=== PATIENT | male | born 1975 | race Caucasian/White ===

== ENCOUNTER 2017-01-22 19:25 | Inpatient (IN) | payer SELFPAY ==
[~2017-01-22] VITALS: Ht 182.9 cm; Wt 118.2 kg
[~2017-01-22 19:25] MED LIST: CYCL-36 PO; IBUP800 PO
[2017-01-22 19:27] VITALS: BP 137/91; PULSE 113; RESP 18; TEMP 98.7; O2SAT 95
[2017-01-22] MEDS ORDERED: ONDANSETRON HCL 4 MG/2 ML VIAL IVP ONE (20:30)
[2017-01-22] MEDS ORDERED: SODIUM CHLOR 0.9% 1000 ML INJ 1,000 ML IV SCH (20:30)
[2017-01-22] MEDS ORDERED: SODIUM CHLORIDE 0.9% FLUSH 10 ML FLUSH IV FLUSH PRN ×3 (20:30→23:15)
[2017-01-22] MEDS ORDERED: MORPHINE SULFATE 4 MG/ML INJ IV PUSH ONE ×2 (20:30→22:15)
--- NOTE | 2017-01-22 20:37 | PD ---
HPI Chief Complaint: Abdominal Pain Time Seen by Provider: 20:31 Travel History International Travel<30 days: No Contact w/Intl Traveler<30days: No Traveled to known affect area: No History of Present Illness HPI 41-year-old male presents to the emergency department for evaluation of left lower quadrant abdominal pain, nausea, vomiting and constipation for 2 days. The patient states that he has had diverticulitis in the past and this feels the same. States that he has intermittent sharp pain in the left lower quadrant. Denies any aggravating or alleviating factors. States that he has not had a bowel movement in 2 days. States that he has nausea and has had 2 episodes of nonbloody nonbilious emesis today. He denies any fever, chills, dysuria, hematuria, chest pain, shortness of breath, diarrhea, bloody stool. Denies any prior abdominal surgeries. Denies alcohol use. No other complaints. PFSH Past Medical History Asthma: No Anxiety: Yes Depression: No Cancer: No Cardiovascular Problems: No COPD: No Cerebrovascular Accident: No Diabetes: No Endocrine: No Gastrointestinal Disorders: No GERD: No Genitourinary: No Headaches: No Immune Disorder: No Implanted Vascular Access Dvce: No Kidney Stones: No Musculoskeletal: No Neurologic: No Reproductive: No Respiratory: Yes Migraines: Yes (every once and a while) Renal Failure: No Seizures: No Sickle Cell Disease: No Sleep Apnea: Yes Thyroid Disease: No Ulcer: No Past Surgical History Abdominal Surgery: No AICD: No Arteriovenous Shunt: No Cardiac Surgery: No Ear Surgery: No Endocrine Surgery: No Eye Surgery: No Genitourinary Surgery: No Gynecologic Surgery: No Insulin Pump: No Joint Replacement: No Neurologic Surgery: No Oral Surgery: No Pacemaker: No Thoracic Surgery: No Other Surgery: Yes Social History Alcohol Use: No Tobacco Use: Yes (1 PACK PER DAY) Substance Use: Yes (marijuana) Allergies-Medications (Allergen,Severity, Reaction): Coded Allergies: Penicillin (Verified Allergy, Severe, HIVES, 06/08/16) Reported Meds & Prescriptions Reported Meds & Active Scripts Active Flexeril (Cyclobenzaprine HCl) 10 Mg Tab 10 Mg PO TID PRN Motrin 800 Mg Tab (Ibuprofen) 800 Mg Tab 800 Mg PO Q8H PRN 10 Days Review of Systems Except as stated in HPI: all other systems reviewed are Neg Physical Exam Narrative GENERAL: Well-nourished and well-developed pleasant patient in no acute distress who is nontoxic appearing. SKIN: Warm and dry. HEAD: Normocephalic and atraumatic. EYES: No injection, drainage, or hyphema noted. PERRLA. EOMI. ENT: No nasal drainage noted. Oropharynx is clear. NECK: Supple and the trachea is midline. CARDIOVASCULAR: Regular rate and rhythm. RESPIRATORY: Breath sounds are equal bilaterally with no accessory muscle use, wheezing, rhonchi, or crackles. GASTROINTESTINAL: Left lower quadrant tenderness to palpation. Negative McBurney's point. Negative Garnica's sign. Abdomen is soft and nondistended. MUSCULOSKELETAL: No obvious deformities, swelling, cyanosis, or ecchymosis is present throughout the upper and lower extremities. Patient has full range of motion without any signs of neurovascular compromise. NEUROLOGICAL: Awake, alert, and oriented. Normal speech and gait. Cranial nerves are grossly intact. Data Data Last Documented VS Vital Signs Date Time Temp Pulse Resp B/P Pulse Ox O2 Delivery O2 Flow Rate FiO2 01/22/17 20:57 99 Room Air 01/22/17 19:27 98.7 113 18 137/91 Orders Complete Blood Count With Diff (01/22/17 20:30) Comprehensive Metabolic Panel (01/22/17 20:30) Lipase (01/22/17 20:30) Urinalysis - C+S If Indicated (01/22/17 20:30) Ct Abd/Pel W Iv Contrast(Rout) (01/22/17 20:30) Iv Access Insert/Monitor (01/22/17 20:30) Ecg Monitoring (01/22/17 20:30) Oximetry (01/22/17 20:30) Morphine Inj (Morphine Inj) (01/22/17 20:30) Ondansetron Inj (Zofran Inj) (01/22/17 20:30) Sodium Chlor 0.9% 1000 Ml Inj (Ns 1000 M (01/22/17 20:30) Sodium Chloride 0.9% Flush (Ns Flush) (01/22/17 20:30) Iohexol 350 Inj (Omnipaque 350 Inj) (01/22/17 21:00) Morphine Inj (Morphine Inj) (01/22/17 22:15) Ciprofloxacin 400 Mg Premix (Cipro 400 M (01/22/17 22:15) Metronidazole 500 Mg Inj (Flagyl 500 Mg (01/22/17 22:15) Admit Order (Ed Use Only) (01/22/17 22:36) Labs Laboratory Tests Test 01/22/17 01/22/17 20:50 21:20 Sodium Level 136 MEQ/L Potassium Level 4.5 MEQ/L Chloride Level 103 MEQ/L Carbon Dioxide Level 22.2 MEQ/L Anion Gap 11 MEQ/L Blood Urea Nitrogen 23 MG/DL Creatinine 1.18 MG/DL Estimat Glomerular Filtration 67 ML/MIN Rate Random Glucose 122 MG/DL Calcium Level 9.4 MG/DL Total Bilirubin 0.5 MG/DL Aspartate Amino Transf 33 U/L (AST/SGOT) Alanine Aminotransferase 49 U/L (ALT/SGPT) Alkaline Phosphatase 99 U/L Total Protein 7.9 GM/DL Albumin 3.9 GM/DL Lipase 1005 U/L White Blood Count 18.1 TH/MM3 Red Blood Count 4.96 MIL/MM3 Hemoglobin 14.3 GM/DL Hematocrit 42.6 % Mean Corpuscular Volume 85.9 FL Mean Corpuscular Hemoglobin 28.8 PG Mean Corpuscular Hemoglobin 33.6 % Concent Red Cell Distribution Width 13.7 % Platelet Count 268 TH/MM3 Mean Platelet Volume 8.5 FL Neutrophils (%) (Auto) 59.9 % Lymphocytes (%) (Auto) 28.3 % Monocytes (%) (Auto) 11.0 % Eosinophils (%) (Auto) 0.4 % Basophils (%) (Auto) 0.4 % Neutrophils # (Auto) 10.8 TH/MM3 Lymphocytes # (Auto) 5.1 TH/MM3 Monocytes # (Auto) 2.0 TH/MM3 Eosinophils # (Auto) 0.1 TH/MM3 Basophils # (Auto) 0.1 TH/MM3 CBC Comment DIFF FINAL Differential Comment MDM Medical Decision Making Medical Screen Exam Complete: Yes Emergency Medical Condition: Yes Differential Diagnosis Diverticulitis versus colitis versus abscess versus kidney stones versus gastroenteritis Narrative Course 41-year-old male presents to the emergency department for evaluation of left lower quadrant abdominal pain with nausea, vomiting and constipation. Patient is afebrile. He slightly tachycardic, otherwise vital signs within normal limits. Patient has left lower quadrant tenderness to palpation. He has a history of diverticulitis and states this feels the same. IV access is obtained , was been drawn and sent. Patient is administered IV fluids, morphine and Zofran. CT abdomen and pelvis with IV contrast has been ordered and is pending. CBC shows elevated white blood cell count of 18.1. CMP shows mild dehydration with a BUN of 23, otherwise unremarkable. Lipase is slightly elevated at 1005. CT of the abdomen and pelvis with IV contrast shows diverticulitis involving the junction of the descending colon and sigmoid colon, and a segment slightly more proximal than the prior abnormal scan in December 2015. No drainable fluid collections seen, but there is a minimal amount of fluid tracking along the adjacent lateral conal fascia. My attending physician Dr. Duran also evaluated the patient and recommends admission for IV antibiotics and pain control. Patient is administered Cipro and Flagyl IV and is admitted to the residents service. Physician Communication Physician Communication I spoke with Dr. Richards medical staff manager who agrees to admit the patient to their service. Diagnosis Primary Impression: Acute diverticulitis Admitting Information Admitting Physician Requests: Admit Mery Mccoy Jan 22, 2017 20:37
[2017-01-22 20:57] VITALS: O2SAT 99
[2017-01-22] MEDS ORDERED: IOHEXOL 350 MG/ML 10 ML VIAL (for RAD DIAG) IV ONE (21:00)
[2017-01-22 21:36] LABS: ALT (GPT) 49 U/L (12-78)
[2017-01-22 21:38] LABS: ANION GAP 11 MEQ/L (5-15); AST (GOT) 33 U/L (15-37); BICARBONATE 22.2 MEQ/L (21.0-32.0); BLOOD UREA NITROGEN 23 MG/DL (7-18); CHLORIDE 103 MEQ/L (98-107); GLOMERULAR FILTRATION RATE 67 ML/MIN (>89); POTASSIUM 4.5 MEQ/L (3.5-5.1); SODIUM (NA) 136 MEQ/L (136-145)
[2017-01-22 21:39] LABS: ALKALINE PHOSPHATASE 99 U/L (45-117); TOTAL BILIRUBIN ADULT 0.5 MG/DL (0.2-1.0)
--- NOTE | 2017-01-22 22:08 | RADRPT ---
EXAM DATE/TIME: 01/22/2017 20:57 [facility] COMPARISON: CT ABDOMEN & PELVIS W CONTRAST, December 25, 2015, 15:37. INDICATIONS : Left lower quadrant pain with nausea and vomiting. IV CONTRAST: 95 cc Omnipaque 350 (iohexol) IV ORAL CONTRAST: No oral contrast ingested. RADIATION DOSE: 20.64 CTDIvol (mGy) MEDICAL HISTORY : Diverticulitis. SURGICAL HISTORY : None. ENCOUNTER: Initial ACUITY: 2 days PAIN SCALE: 10/10 LOCATION: Left lower quadrant TECHNIQUE: Volumetric scanning of the abdomen and pelvis was performed. Using automated exposure control and ad justment of the mA and/or kV according to patient size, radiation dose was kept as low as reasonably achievable to obtain optimal diagnostic quality images. FINDINGS: LOWER LUNGS: The visualized lower lungs are clear. Multiple tiny subpleural cysts in both lower lungs stable in a ppearance. LIVER: Homogeneous density without lesion. There is no dilation of the biliary tree. No calcified gallston es. SPLEEN: Normal size without lesion. PANCREAS: Within normal limits. KIDNEYS: Normal in size and shape. There is no mass, stone or hydronephrosis. ADRENAL GLANDS: Within normal limits. VASCULAR: There is no aortic aneurysm. BOWEL/MESENTERY: Comparison to prior CT 12/25/15 which demonstrated wall thickening and induration of the fat about the proximal sigmoid colon. On today's examination, there is induration about the proximal sigmoid colon near the junction with the descending colon, a segment slightly more proximal than on the prior exam ination. There is thickening of the lateral conal fashion and possible minimal free fluid in this ar ea. The area of pericolonic stranding in the proximal sigmoid colon seen on the prior examination garnett s resolved. There are a few scattered diverticula in the proximal sigmoid colon. No evidence of warren e fluid in the pelvis. No evidence of free intraperitoneal gas. No dilated loops of small or large bowel. The appendix is identified in the right lower quadrant has a normal appearance. ABDOMINAL WALL: Within normal limits. RETROPERITONEUM: There is no lymphadenopathy. BLADDER: No wall thickening or mass. REPRODUCTIVE: Within normal limits. INGUINAL: There is no lymphadenopathy or hernia. MUSCULOSKELETAL: Within normal limits for patient age. CONCLUSION: There is evidence of diverticulitis involving the junction of the descending colon and sigmoid colon, in a segment slightly more proximal than the prior abnormal scan on 12/25/15. No drainable fluid nori ections seen, but there is a minimal amount of fluid tracking along the adjacent lateral conal fascia . Aldo Quezada MD on January 22, 2017 at 22:00 Board Certified Radiologist. This report was verified electronically.
[2017-01-22 22:11] LABS: AUTOMATED NEUTROPHIL # 10.8 TH/MM3 (1.8-7.7); BASOPHIL # 0.1 TH/MM3 (0-0.2); BASOPHIL % 0.4 % (0.0-2.0); EOSINOPHIL # 0.1 TH/MM3 (0-0.4); EOSINOPHIL % 0.4 % (0.0-4.0); HEMATOCRIT 42.6 % (39.0-51.0); HEMO FLAGS DIFF FINAL; LYMPH % 28.3 % (9.0-44.0); LYMPHOCYTE # 5.1 TH/MM3 (1.0-4.8); MEAN CELL VOLUME 85.9 FL (80.0-100.0); MEAN CORPUSCULAR HEMOGLOBIN 28.8 PG (27.0-34.0); MEAN CORPUSCULAR HGB CONC 33.6 % (32.0-36.0); NEUT % 59.9 % (16.0-70.0); PLATELET COUNT 268 TH/MM3 (150-450); RED BLOOD COUNT 4.96 MIL/MM3 (4.50-5.90); RED CELL DISTRIBUTION WIDTH 13.7 % (11.6-17.2); WHITE BLOOD COUNT 18.1 TH/MM3 (4.0-11.0)
[2017-01-22] MEDS ORDERED: CIPROFLOXACIN 400 MG PREMIX 200 ML IV ONE (22:15)
[2017-01-22] MEDS ORDERED: metroNIDAZOLE 500 MG INJ 100 ML IV ONE (22:15)
--- NOTE | 2017-01-22 22:55 | HHI.HP ---
HPI Service Family Medicine Primary Care Physician No Primary Care Physician Admission Diagnosis Acute Diverticulitis Diagnoses: International Travel<30 Days: No Contact w/Intl Traveler<30days: No Known Affected Area: No History of Present Illness This is a 41 year old male with a past medical history significant for Diverticulitis. He is presenting to the [facility] ED due to abdominal pain. He has had the abdominal pain for the last 2 days and it has been progressively worsening. At first the pain was tolerable and felt like a bad cramp, as it worsening he switched himself to a clear liquid diet. He started to throw up a day into the pain and said that the emisis was food or bile but did not notice any blood. The pain is in the left side of his abdomen from the bottom of the last rib to the top of his hip. He has the constant cramping pain then occasionally he gets these very unbearable pain, which convinced him to come to the hospital. He say that the sever pain "feels like a midget kicking him in the stomach with a steel toe boot" and that it comes in waves. He says that this pain is more severe then his previous bout of diverticulitis. His last bowel movement was 2 days prior, he denies it being bloody or black. He is unaware of any fevers, though he occasionally feels hot and cold. Review of Systems Constitutional: COMPLAINS OF: Weight loss, Change in appetite (decreased), DENIES: Fever, Weight gain Endocrine: DENIES: Polydipsia Eyes: DENIES: Double Vision Ears, nose, mouth, throat: COMPLAINS OF: Running Nose, DENIES: Nasal discharge , Throat pain, Hoarseness, Toothache Respiratory: COMPLAINS OF: Cough, DENIES: Sputum production, Shortness of breath Cardiovascular: DENIES: Chest pain, Lower Extremity Edema, Claudication Gastrointestinal: COMPLAINS OF: Abdominal pain, Nausea, Vomiting, DENIES: Black stools, Bloody stools, Constipation Genitourinary: DENIES: Hematuria, Dysuria Musculoskeletal: DENIES: Joint pain, Back pain Hematologic/lymphatic: DENIES: Bruising Neurologic: DENIES: Abnormal gait, Headache, Poor Balance Psychiatric: DENIES: Anxiety, Confusion, Depression Past Family Social History Past Medical History Diverticulitis Past Surgical History none Reported Medications Reported Meds & Active Scripts Active Flexeril (Cyclobenzaprine HCl) 10 Mg Tab 10 Mg PO TID PRN Motrin 800 Mg Tab (Ibuprofen) 800 Mg Tab 800 Mg PO Q8H PRN 10 Days Allergies: Coded Allergies: Penicillin (Verified Allergy, Severe, HIVES, 06/08/16) Family History Diabetes HTN Social History Live in [place] in an apartment 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 SKIN: No rashes, ecchymoses or lesions. Cool and dry. HEAD: Atraumatic. Normocephalic. No temporal or scalp tenderness. EYES: Pupils equal round and reactive. Extraocular motions intact. No scleral icterus. No injection or drainage. ENT: Nose without bleeding, purulent drainage or septal hematoma. Throat without erythema, tonsillar hypertrophy or exudate. Uvula midline. Airway patent. NECK: Trachea midline. No JVD or lymphadenopathy. Supple, nontender, no meningeal signs. CARDIOVASCULAR: Regular rate and rhythm without murmurs, gallops, or rubs. RESPIRATORY: Clear to auscultation. Breath sounds equal bilaterally. No wheezes , rales, or rhonchi. GASTROINTESTINAL: Abdomen soft, nondistended. No hepato-splenomegaly, or palpable masses. No guarding. Palpation of the abdomen causes pain in both the LUQ and LLQ. Negative McBurney's point. Negative Garnica's sign. MUSCULOSKELETAL: Extremities without clubbing, cyanosis, or edema. No joint tenderness, effusion, or edema noted. No calf tenderness. Negative Homans sign bilaterally. NEUROLOGICAL: Awake and alert. Cranial nerves II through XII grossly intact. Motor and sensory grossly within normal limits. Normal speech. Laboratory Laboratory Tests Test 01/22/17 01/22/17 20:50 21:20 Sodium Level 136 Potassium Level 4.5 Chloride Level 103 Carbon Dioxide Level 22.2 Anion Gap 11 Blood Urea Nitrogen 23 Creatinine 1.18 Estimat Glomerular Filtration 67 Rate Random Glucose 122 Calcium Level 9.4 Total Bilirubin 0.5 Aspartate Amino Transf 33 (AST/SGOT) Alanine Aminotransferase 49 (ALT/SGPT) Alkaline Phosphatase 99 Total Protein 7.9 Albumin 3.9 Lipase 1005 White Blood Count 18.1 Red Blood Count 4.96 Hemoglobin 14.3 Hematocrit 42.6 Mean Corpuscular Volume 85.9 Mean Corpuscular Hemoglobin 28.8 Mean Corpuscular Hemoglobin 33.6 Concent Red Cell Distribution Width 13.7 Platelet Count 268 Mean Platelet Volume 8.5 Neutrophils (%) (Auto) 59.9 Lymphocytes (%) (Auto) 28.3 Monocytes (%) (Auto) 11.0 Eosinophils (%) (Auto) 0.4 Basophils (%) (Auto) 0.4 Neutrophils # (Auto) 10.8 Lymphocytes # (Auto) 5.1 Monocytes # (Auto) 2.0 Eosinophils # (Auto) 0.1 Basophils # (Auto) 0.1 CBC Comment DIFF FINAL Differential Comment Result Diagram: 01/22/17211901/22/172049 Imaging Last Impressions Abdomen/Pelvis CT 01/22/172029 Signed Impressions: Service Date/Time: Sunday, January 22, 2017 20:57 - CONCLUSION: There is evidence of diverticulitis involving the junction of the descending colon and sigmoid colon, in a segment slightly more proximal than the prior abnormal scan on 12/25/15. No drainable fluid collections seen, but there is a minimal amount of fluid tracking along the adjacent lateral conal fascia. Aldo Quezada MD Assessment and Plan Assessment and Plan This is a 41 year old male with a past medical history significant for Diverticulitis. Being admitted for diverticulitis Code Status Full Code Discussed Condition With wdw: Dr. Felix Problem List: (1) Acute diverticulitis Status: Acute Plan: Patient is having a bout of acute diverticulitis per history, physical exam, and CT. WBC is elevated at 18.1. Vital are with in normal limits * Admit to inpatient * Consult Gastroenterology, recommendations appreciated * Ciprofloxacin 40 mg IV every 12 hours * Metronidazole 500 mg IV every 8 hours * Morphine 2 mg IV every 4 hours we'll transition to by mouth as patient progresses * Zofran 4 mg IV every 6 hours when necessary nausea/vomiting * Protonix 40 mg IV every 24 hours * IV fluids NS at 100 MLS per hour * Blood cultures pending * CBC, BMP ordered for the a.m. (2) Nutrition, metabolism, and development symptoms Status: Acute Plan: Diet: NPO at this time will progress diet as patient improved Fluid: NS at 100 MLS per hour Out of Bed ad xiang vitals q4 monitor electrolytes replace accordingly DVT prophylaxis with Heparin and SCDs Code Status: Full Code Disposition: improvement of clinic condition and GI recs Juan Carlos Richards MD R2 Jan 22, 2017 22:55
[2017-01-22] MEDS ORDERED: SENNOSIDES 8.6 MG TAB PO PRN (23:15)
[2017-01-22] MEDS ORDERED: NALOXONE HCL 0.4 MG/ML AMP IV PRN (23:15)
[2017-01-22] MEDS ORDERED: TEMAZEPAM 15 MG CAP PO PRN (23:15)
[2017-01-22] MEDS ORDERED: MAGNESIUM HYDROXIDE SUSP 30 ML CUP PO PRN (23:15)
[2017-01-22] MEDS ORDERED: ONDANSETRON HCL 4 MG/2 ML VIAL IV PRN (23:15)
[2017-01-22] MEDS ORDERED: BISACODYL 10 MG SUPP RECTAL PRN (23:15)
[2017-01-22] MEDS ORDERED: LACTULOSE SYRUP 20 GM/30 ML CUP PO PRN (23:15)
[2017-01-22] MEDS: SODIUM CHLOR 0.9% 1000 ML INJ 1,000 ML IV SCH (23:57)
[2017-01-22] MEDS: HEPARIN SODIUM - SQ 10,000 UNITS/ML VIAL SQ SCH (23:57)
[2017-01-23] MEDS ORDERED: PANTOPRAZOLE SODIUM 40 MG VIAL IV PUSH SCH
[2017-01-23 00:10] VITALS: BP 144/70; PULSE 97; RESP 19; TEMP 96.7; O2SAT 94
[2017-01-23 01:43] LABS: BLOOD, URINE NEG (NEG); COMMENT (UR) CULT NOT INDICATED; CULTURE IF INDICATED CULT NOT INDICATED; GLUCOSE,URINE 70 mg/dL (NEG); KETONE, URINE NEG (NEG); NITRITE,URINE NEG (NEG); PH, URINE 5.5 (5.0-8.5); URINE COLOR YELLOW (YELLW/STRAW)
[2017-01-23] MEDS: MORPHINE SULFATE 4 MG/ML INJ IV PRN ×4 (02:57→19:26)
[2017-01-23 04:00] VITALS: BP 118/62; PULSE 88; RESP 18; TEMP 97; O2SAT 93
[2017-01-23 08:00] VITALS: BP 118/74; PULSE 79; RESP 20; TEMP 96.5; O2SAT 97
[2017-01-23] MEDS ORDERED: metroNIDAZOLE 500 MG INJ 100 ML IV SCH (08:00)
[2017-01-23] MEDS: HEPARIN SODIUM - SQ 10,000 UNITS/ML VIAL SQ SCH ×3 (08:08→23:36)
[2017-01-23] MEDS: SODIUM CHLORIDE 0.9% FLUSH 10 ML FLUSH IV FLUSH SCH ×2 (08:08→19:33)
[2017-01-23] MEDS: DOCUSATE SODIUM 50 MG/SENNA 8.6 MG TAB PO SCH ×2 (08:08→19:26)
[2017-01-23] MEDS: SODIUM CHLOR 0.9% 1000 ML INJ 1,000 ML IV SCH (08:10)
[2017-01-23 08:29] LABS: AUTOMATED NEUTROPHIL # 8.4 TH/MM3 (1.8-7.7); BASOPHIL # 0.1 TH/MM3 (0-0.2); BASOPHIL % 0.5 % (0.0-2.0); EOSINOPHIL # 0.1 TH/MM3 (0-0.4); EOSINOPHIL % 0.7 % (0.0-4.0); HEMATOCRIT 41.9 % (39.0-51.0); HEMO FLAGS DIFF FINAL; LYMPH % 32.9 % (9.0-44.0); LYMPHOCYTE # 4.9 TH/MM3 (1.0-4.8); MEAN CELL VOLUME 86.5 FL (80.0-100.0); MEAN CORPUSCULAR HEMOGLOBIN 29.1 PG (27.0-34.0); MEAN CORPUSCULAR HGB CONC 33.6 % (32.0-36.0); MONO % 9.8 % (0.0-8.0); NEUT % 56.1 % (16.0-70.0); PLATELET COUNT 248 TH/MM3 (150-450); RED BLOOD COUNT 4.85 MIL/MM3 (4.50-5.90); RED CELL DISTRIBUTION WIDTH 13.8 % (11.6-17.2)
[2017-01-23 08:44] LABS: BICARBONATE 24.8 MEQ/L (21.0-32.0)
[2017-01-23] MEDS ORDERED: SODIUM CHLORIDE 0.9% FLUSH 10 ML FLUSH IV FLUSH SCH (09:00)
--- NOTE | 2017-01-23 10:01 | PD.CONS ---
HPI History of Present Illness This is a 41 year old male who presented to the ER with LLQ abdominal pain. Prior to going to the ER he had abdominal pain for 2 days that was worsening. He started himself on clear liquid diet with no relief. Started having nausea and vomiting. No hematemesis. Patient with past medical history of diverticulitis, 1 year ago. Never has had colonoscopy. Today reports constant LLQ abdominal pain described as "cramping," with intermittent sharp, stabbing pain. States he has not had BM in 3 days. States last BM was formed, no melena or hematochezia. He currently is NPO. (Yoselin Pike) PFSH Past Medical History -Diverticulitis Past Surgical History None (Yoselin Pike) Coded Allergies: Penicillin (Verified Allergy, Severe, HIVES, 06/08/16) Medications Current Medications Medications (Trade) Dose Ordered Sig/Ora Route PRN Reason Start Time Stop Time Status Last Admin Dose Admin Sodium Chloride 1,000 ml @ 100 mls/hr Q10H IV 01/22/17 23:06 01/23/17 08:10 Ciprofloxacin/ Dextrose 200 ml @ 200 mls/hr Q12H IV 01/23/17 12:00 Metronidazole (Flagyl 500 Mg Inj) 100 ml @ 100 mls/hr Q8H IV 01/23/17 08:00 01/23/17 08:08 Morphine Sulfate (Morphine Inj) 2 mg Q4H PRN IV PAIN SCALE 6 TO 10 01/22/17 23:15 01/23/17 07:09 Ondansetron HCl (Zofran Inj) 4 mg Q6H PRN IV NAUSEA 01/22/17 23:15 Heparin Sodium (Porcine) (Heparin Inj) 5,000 units Q8H SQ 01/23/17 00:00 01/23/17 08:08 Sodium Chloride (NS Flush) 2 ml UNSCH PRN IV FLUSH FLUSH AFTER USING IV ACCESS 01/22/17 23:15 Sodium Chloride (NS Flush) 2 ml BID IV FLUSH 01/23/17 09:00 01/23/17 08:08 Temazepam (Restoril) 15 mg HS PRN PO INSOMNIA 01/22/17 23:15 Naloxone HCl (Narcan Inj) 0.4 mg UNSCH PRN IV SEE LABEL COMMENTS 01/22/17 23:15 Senna/Docusate Sodium (Cady-Colace) 1 tab BID PO 01/23/17 09:00 01/23/17 08:08 Magnesium Hydroxide (Milk Of Magnesia Liq) 30 ml Q12H PRN PO MILD - MODERATE CONSTIPATION 01/22/17 23:15 Sennosides (Senokot) 17.2 mg Q12H PRN PO MODERATE - SEVERE CONSTIPATION 01/22/17 23:15 Bisacodyl (Dulcolax Supp) 10 mg DAILY PRN RECTAL SEVERE CONSITIPATION 01/22/17 23:15 Lactulose (Lactulose Liq) 30 ml DAILY PRN PO SEVERE CONSITIPATION 01/22/17 23:15 Pantoprazole Sodium (Protonix) 40 mg DAILY PO 01/24/17 09:00 Family History Diabetes Hypertension 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 History -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 -Tobacco: Smokes 1 pack every 2-3 days -ETOH: Denies -Occasional marijuana (Yoselin Pike) Review of Systems Constitutional: COMPLAINS OF: Weight loss, Change in appetite, DENIES: Diaphoretic episodes, Fatigue, Fever, Weight gain, Chills, Dizziness, Night Sweats Endocrine: DENIES: Polydipsia, Polyuria Eyes: DENIES: Blurred vision, Photosensitivity, Double Vision Ears, nose, mouth, throat: DENIES: Hearing loss, Vertigo, Oral lesions, Throat pain, Hoarseness Respiratory: DENIES: Cough, Wheezing, Hemoptysis, Sputum production, Shortness of breath Cardiovascular: DENIES: Chest pain, Palpitations, Syncope, Lower Extremity Edema, Orthopnea, Claudication Gastrointestinal: COMPLAINS OF: Abdominal pain, Nausea, Vomiting, DENIES: Black stools, Bloody stools, Constipation, Diarrhea, Difficulty Swallowing, Anorexia, Odynophagia, Swelling of Abdomen, Heartburn, Hematemesis Genitourinary: DENIES: Urinary frequency, Urinary incontinence, Urgency, Hematuria, Dysuria, Nocturia Musculoskeletal: DENIES: Joint pain, Muscle aches, Stiffness, Joint Swelling, Back pain, Neck pain Integumentary: DENIES: Abnormal pigmentation, Nail changes, Pruritus, Rash, Jaundice Hematologic/lymphatic: DENIES: Bruising, Lymphadenopathy Immunologic/allergic: DENIES: Eczema, Urticaria Neurologic: DENIES: Abnormal gait, Headache, Localized weakness, Paresthesias Psychiatric: DENIES: Anxiety, Confusion, Mood changes, Depression, Agitation, Suicidal Ideation (Yoselin Piek) GI Exam Vitals I&O Vital Signs Date Time Temp Pulse Resp B/P Pulse Ox O2 Delivery O2 Flow Rate FiO2 01/23/17 08:09 18 01/23/17 08:00 96.5 79 20 118/74 97 01/23/17 04:00 97.0 88 18 118/62 93 01/23/17 00:10 96.7 97 19 144/70 94 01/22/17 20:57 99 Room Air 01/22/17 19:27 98.7 113 18 137/91 95 Room Air I/O 01/22/17 01/22/17 01/22/17 01/23/17 01/23/17 01/23/17 07:00 15:00 23:00 07:00 15:00 23:00 Output Total 425 ml Balance -425 ml Output Urine Total 425 ml # Voids 2 Imaging Last Impressions Abdomen/Pelvis CT 01/22/172029 Signed Impressions: Service Date/Time: Sunday, January 22, 2017 20:57 - CONCLUSION: There is evidence of diverticulitis involving the junction of the descending colon and sigmoid colon, in a segment slightly more proximal than the prior abnormal scan on 12/25/15. No drainable fluid collections seen, but there is a minimal amount of fluid tracking along the adjacent lateral conal fascia. Aldo Quezada MD Laboratory Test 01/22/17 01/22/17 01/23/17 01/23/17 20:50 21:20 00:15 07:23 Sodium Level 136 MEQ/L 137 MEQ/L Potassium Level 4.5 MEQ/L 4.0 MEQ/L Chloride Level 103 MEQ/L 105 MEQ/L Carbon Dioxide Level 22.2 MEQ/L 24.8 MEQ/L Anion Gap 11 MEQ/L 7 MEQ/L Blood Urea Nitrogen 23 MG/DL 19 MG/DL Creatinine 1.18 MG/DL 1.08 MG/DL Estimat Glomerular Filtration 67 ML/MIN 75 ML/MIN Rate Random Glucose 122 MG/DL 125 MG/DL Calcium Level 9.4 MG/DL 8.4 MG/DL Total Bilirubin 0.5 MG/DL Aspartate Amino Transf 33 U/L (AST/SGOT) Alanine Aminotransferase 49 U/L (ALT/SGPT) Alkaline Phosphatase 99 U/L Total Protein 7.9 GM/DL Albumin 3.9 GM/DL Lipase 1005 U/L White Blood Count 18.1 TH/MM3 15.0 TH/MM3 Red Blood Count 4.96 MIL/MM3 4.85 MIL/MM3 Hemoglobin 14.3 GM/DL 14.1 GM/DL Hematocrit 42.6 % 41.9 % Mean Corpuscular Volume 85.9 FL 86.5 FL Mean Corpuscular Hemoglobin 28.8 PG 29.1 PG Mean Corpuscular Hemoglobin 33.6 % 33.6 % Concent Red Cell Distribution Width 13.7 % 13.8 % Platelet Count 268 TH/MM3 248 TH/MM3 Mean Platelet Volume 8.5 FL 8.3 FL Neutrophils (%) (Auto) 59.9 % 56.1 % Lymphocytes (%) (Auto) 28.3 % 32.9 % Monocytes (%) (Auto) 11.0 % 9.8 % Eosinophils (%) (Auto) 0.4 % 0.7 % Basophils (%) (Auto) 0.4 % 0.5 % Neutrophils # (Auto) 10.8 TH/MM3 8.4 TH/MM3 Lymphocytes # (Auto) 5.1 TH/MM3 4.9 TH/MM3 Monocytes # (Auto) 2.0 TH/MM3 1.5 TH/MM3 Eosinophils # (Auto) 0.1 TH/MM3 0.1 TH/MM3 Basophils # (Auto) 0.1 TH/MM3 0.1 TH/MM3 CBC Comment DIFF FINAL DIFF FINAL Differential Comment Urine Color YELLOW Urine Turbidity CLEAR Urine pH 5.5 Urine Specific [place] GREATER THAN 1.050 Urine Protein TRACE mg/dL Urine Glucose (UA) 70 mg/dL Urine Ketones NEG mg/dL Urine Occult Blood NEG Urine Nitrite NEG Urine Bilirubin NEG Urine Urobilinogen LESS THAN 2.0 MG/DL Urine Leukocyte Esterase NEG Urine WBC LESS THAN 1 /hpf Microscopic Urinalysis Comment CULT NOT INDICATED Date/Time Procedure Status Source Growth 01/23/17 07:23 Aerobic Blood Culture Received Blood Peripheral Pending 01/23/17 07:23 Anaerobic Blood Culture Received Blood Peripheral Pending Physical Examination HEENT: PERRLA; normocephalic; atraumatic; no jaundice. NECK: Neck is supple, no JVD, no lymphadenopathy. CHEST: CTA CARDIAC: RRR ABDOMEN: Soft, nondistended, no hepatosplenomegaly; LUQ and LLQ pain on palpation, bowel sounds x 4 quadrants. EXTREMITIES: No clubbing, cyanosis, or edema. SKIN: Normal; no rash; no jaundice. FERN CUTTER: No focal deficits; alert and oriented times three. (Yoselin Pike) Assessment and Plan Plan ASSESSMENT: -Diverticulitis, Left sided abdominal pain. Patient with history of diverticulitis. Abdomen/Pelvis CT 01/22/17-- There is evidence of diverticulitis involving the junction of the descending colon and sigmoid colon, in a segment slightly more proximal than the prior abnormal scan on 12/25/15. No drainable fluid collections seen, but there is a minimal amount of fluid tracking along the adjacent lateral conal fascia. WBC elevated, 15. Afebrile. Blood cultures pending. PLAN: -NPO -Continue Cipro and Flagyl -IV fluids -Await blood culture results -Supportive care -FU Colonoscopy as outpatient Patient seen and examined by Dr. Umanzor and myself and this note is written on his behalf. (Yoselin Pike) Physician Comments Seen and examined, plan as above. Further recommendations to follow. (Janis Umanzor MD) Yoselin Pike Jan 23, 2017 10:01 Janis Umanzor MD Jan 23, 2017 12:35
--- NOTE | 2017-01-23 11:58 | HHI.FPPN ---
Subjective Remarks Patient seen, examined and discussed with medicine team. This is a 41-year-old male who was admitted with acute diverticulitis , giving history of the same in the past. For the last 2 days, he's had abdominal pain which continued to worsen, with cramping and spasms. This episode is worse than in his past experience. He has tenderness in both the left upper and left lower quadrant at the time of admission. His last BM was 2 days prior to admission and he currently takes no medications. These refer to history and physical examination for this admission for additional past, family, social history and review of systems at the time of admission. This morning, he feels a little better, his pain is somewhat less and he would like to try clear liquids. He denies any chest pain, shortness of breath, any other symptoms other than his abdominal discomfort. Of note, he is a smoker and is trying to quit. Objective Vitals Vital Signs Date Time Temp Pulse Resp B/P Pulse Ox O2 Delivery O2 Flow Rate FiO2 01/23/17 08:09 18 01/23/17 08:00 96.5 79 20 118/74 97 01/23/17 04:00 97.0 88 18 118/62 93 01/23/17 00:10 96.7 97 19 144/70 94 01/22/17 20:57 99 Room Air 01/22/17 19:27 98.7 113 18 137/91 95 Room Air I/O 01/22/17 01/22/17 01/22/17 01/23/17 01/23/17 01/23/17 07:00 15:00 23:00 07:00 15:00 23:00 Output Total 425 ml Balance -425 ml Output Urine Total 425 ml # Voids 2 Result Diagram: 01/23/17 0723 01/23/17 0723 Other Results Laboratory Tests Test 01/22/17 01/22/17 01/23/17 01/23/17 20:50 21:20 00:15 07:23 Sodium Level 136 MEQ/L 137 MEQ/L Potassium Level 4.5 MEQ/L 4.0 MEQ/L Chloride Level 103 MEQ/L 105 MEQ/L Carbon Dioxide Level 22.2 MEQ/L 24.8 MEQ/L Anion Gap 11 MEQ/L 7 MEQ/L Blood Urea Nitrogen 23 MG/DL 19 MG/DL Creatinine 1.18 MG/DL 1.08 MG/DL Estimat Glomerular Filtration 67 ML/MIN 75 ML/MIN Rate Random Glucose 122 MG/DL 125 MG/DL Calcium Level 9.4 MG/DL 8.4 MG/DL Total Bilirubin 0.5 MG/DL Aspartate Amino Transf 33 U/L (AST/SGOT) Alanine Aminotransferase 49 U/L (ALT/SGPT) Alkaline Phosphatase 99 U/L Total Protein 7.9 GM/DL Albumin 3.9 GM/DL Lipase 1005 U/L White Blood Count 18.1 TH/MM3 15.0 TH/MM3 Red Blood Count 4.96 MIL/MM3 4.85 MIL/MM3 Hemoglobin 14.3 GM/DL 14.1 GM/DL Hematocrit 42.6 % 41.9 % Mean Corpuscular Volume 85.9 FL 86.5 FL Mean Corpuscular Hemoglobin 28.8 PG 29.1 PG Mean Corpuscular Hemoglobin 33.6 % 33.6 % Concent Red Cell Distribution Width 13.7 % 13.8 % Platelet Count 268 TH/MM3 248 TH/MM3 Mean Platelet Volume 8.5 FL 8.3 FL Neutrophils (%) (Auto) 59.9 % 56.1 % Lymphocytes (%) (Auto) 28.3 % 32.9 % Monocytes (%) (Auto) 11.0 % 9.8 % Eosinophils (%) (Auto) 0.4 % 0.7 % Basophils (%) (Auto) 0.4 % 0.5 % Neutrophils # (Auto) 10.8 TH/MM3 8.4 TH/MM3 Lymphocytes # (Auto) 5.1 TH/MM3 4.9 TH/MM3 Monocytes # (Auto) 2.0 TH/MM3 1.5 TH/MM3 Eosinophils # (Auto) 0.1 TH/MM3 0.1 TH/MM3 Basophils # (Auto) 0.1 TH/MM3 0.1 TH/MM3 CBC Comment DIFF FINAL DIFF FINAL Differential Comment Urine Color YELLOW Urine Turbidity CLEAR Urine pH 5.5 Urine Specific Saline GREATER THAN 1.050 Urine Protein TRACE mg/dL Urine Glucose (UA) 70 mg/dL Urine Ketones NEG mg/dL Urine Occult Blood NEG Urine Nitrite NEG Urine Bilirubin NEG Urine Urobilinogen LESS THAN 2.0 MG/DL Urine Leukocyte Esterase NEG Urine WBC LESS THAN 1 /hpf Microscopic Urinalysis Comment CULT NOT INDICATED Imaging Last Impressions Abdomen/Pelvis CT 01/22/172029 Signed Impressions: Service Date/Time: Sunday, January 22, 2017 20:57 - CONCLUSION: There is evidence of diverticulitis involving the junction of the descending colon and sigmoid colon, in a segment slightly more proximal than the prior abnormal scan on 12/25/15. No drainable fluid collections seen, but there is a minimal amount of fluid tracking along the adjacent lateral conal fascia. Aldo Quezada MD Objective Remarks O. CONSTITUTIONAL/GEN: normally nourished, in mild distress with abdominal discomfort. He is obese. EYES: conjunctiva normal, PERRLA, EOMI. NECK: thyroid midline, neck is supple. LUNGS: clear A-P, respiratory effort is normal. CARDIOVASCULAR: RR without murmur or gallop. No significant edema. GI/ABD: soft without masses, without organomegaly. Tender in the left mid abdomen and left lower quadrant and suprapubic area to palpation. Scanty bowel sounds. NEURO: No focal deficits. SKIN: color normal, no rashes noted. HEME/LYMPH: no bruising, petechia or significant adenopathy MUSC: back is normal in appearance. Extremities are normal in appearance. PSYCH/MENTAL STATUS: Alert and oriented x 3. A/P Assessment and Plan This is a 41 year old male with a past medical history significant for Diverticulitis. He was admitted for IV fluids and pain medication as well as monitor for sepsis. Attending Attestation Patient seen and examined. Case reviewed and discussed with the resident team. Agree with plan of care as discussed with me and documented in the resident note. Problem List: (1) Acute diverticulitis Status: Acute Plan: Patient is having a bout of acute diverticulitis per history, physical exam, and CT. WBC was levated at 18.1, down to 15 today. Vital are with in normal limits * Admit to inpatient * Consult Gastroenterology, recommendations to continue nothing by mouth and get colonoscopy as an outpatient * Ciprofloxacin 40 mg IV every 12 hours * Metronidazole 500 mg IV every 8 hours * Morphine 2 mg IV every 4 hours we'll transition to by mouth as patient progresses * Zofran 4 mg IV every 6 hours when necessary nausea/vomiting * Protonix 40 mg IV every 24 hours * IV fluids NS at 100 MLS per hour * Blood cultures pending * CBC, BMP ordered for the a.m. (2) Nutrition, metabolism, and development symptoms Status: Acute Plan: Diet: NPO initially, will start clear liquid diet as tolerated Fluid: NS at 100 MLS per hour Out of Bed ad xiang vitals q4 monitor electrolytes replace accordingly DVT prophylaxis with Heparin and SCDs Code Status: Full Code Disposition: improvement of clinic condition and GI recs Georgia Felix MD Jan 23, 2017 11:58
[2017-01-23 12:00] VITALS: BP 113/56; PULSE 72; RESP 16; TEMP 97.1; O2SAT 96
[2017-01-23] MEDS ORDERED: CIPROFLOXACIN 400 MG PREMIX 200 ML IV SCH (12:00)
[2017-01-23] MEDS: metroNIDAZOLE 500 MG TAB PO SCH ×2 (13:53→21:26)
[2017-01-23 16:00] VITALS: BP 129/75; PULSE 75; RESP 16; TEMP 96.8; O2SAT 96
[2017-01-23] MEDS: CIPROFLOXACIN 500 MG TAB PO SCH (19:26)
[2017-01-23 20:00] VITALS: BP 136/78; PULSE 72; RESP 17; TEMP 99.2; O2SAT 98
[2017-01-24] VITALS: BP 121/70; PULSE 72; RESP 18; TEMP 97.1; O2SAT 95
[2017-01-24 04:00] VITALS: BP 124/70; PULSE 72; RESP 18; TEMP 97; O2SAT 98
[2017-01-24] MEDS: SODIUM CHLOR 0.9% 1000 ML INJ 1,000 ML IV SCH ×2 (05:06→15:06)
[2017-01-24] MEDS: metroNIDAZOLE 500 MG TAB PO SCH ×2 (05:26→14:01)
[2017-01-24 06:49] LABS: HEMATOCRIT 39.2 % (39.0-51.0); MEAN CELL VOLUME 85.5 FL (80.0-100.0); MEAN CORPUSCULAR HEMOGLOBIN 29.7 PG (27.0-34.0); MEAN CORPUSCULAR HGB CONC 34.7 % (32.0-36.0); PLATELET COUNT 257 TH/MM3 (150-450); RED BLOOD COUNT 4.58 MIL/MM3 (4.50-5.90); RED CELL DISTRIBUTION WIDTH 13.4 % (11.6-17.2); REVIEW FLAG FINAL; WHITE BLOOD COUNT 12.1 TH/MM3 (4.0-11.0)
[2017-01-24 07:13] LABS: BICARBONATE 25.8 MEQ/L (21.0-32.0)
[2017-01-24] MEDS: DOCUSATE SODIUM 50 MG/SENNA 8.6 MG TAB PO SCH (08:18)
[2017-01-24] MEDS: MORPHINE SULFATE 4 MG/ML INJ IV PRN (08:18)
[2017-01-24] MEDS: HEPARIN SODIUM - SQ 10,000 UNITS/ML VIAL SQ SCH ×2 (08:18→16:00)
[2017-01-24] MEDS: CIPROFLOXACIN 500 MG TAB PO SCH (08:18)
[2017-01-24 08:57] VITALS: BP 131/88; PULSE 71; RESP 21; TEMP 97.3; O2SAT 96
[2017-01-24] MEDS ORDERED: PANTOPRAZOLE SOD 40 MG DELAYED RELEASE TAB PO SCH (09:00)
[2017-01-24] MEDS: SODIUM CHLORIDE 0.9% FLUSH 10 ML FLUSH IV FLUSH SCH (09:00)
[2017-01-24] MEDS ORDERED: NALOXONE HCL 0.4 MG/ML AMP IV PRN (09:45)
[2017-01-24] MEDS ORDERED: oxyCODONE/ACETAMINOPHEN 10 MG/325 MG TAB PO PRN (09:45)
[2017-01-24] MEDS ORDERED: IBUPROFEN 400 MG TAB PO PRN (09:45)
[2017-01-24] MEDS ORDERED: oxyCODONE/ACETAMINOPHEN 5 MG/325 MG TAB PO PRN (09:45)
[2017-01-24] MEDS ORDERED: MORPHINE SULFATE 4 MG/ML INJ IV PRN (09:45)
[2017-01-24 12:39] VITALS: BP 156/92; PULSE 77; RESP 20; TEMP 96.7; O2SAT 97
--- NOTE | 2017-01-24 13:14 | HHI.GIFU ---
Subjective Remarks Pt resting in bed. Says his pain has improved, 5/10 today and confined to smaller radius of LLQ. Had BM, no blood. (Mayra Ferguson) Objective Vitals I&O Vital Signs Date Time Temp Pulse Resp B/P Pulse Ox O2 Delivery O2 Flow Rate FiO2 01/24/17 12:39 96.7 77 20 156/92 97 01/24/17 08:57 97.3 71 21 131/88 96 01/24/17 04:00 97.0 72 18 124/70 98 01/24/17 00:00 97.1 72 18 121/70 95 01/23/17 20:00 99.2 72 17 136/78 98 01/23/17 16:00 96.8 75 16 129/75 96 I/O 01/23/17 01/23/17 01/23/17 01/24/17 01/24/17 01/24/17 07:00 15:00 23:00 07:00 15:00 23:00 Intake Total 480 ml 480 ml 480 ml Output Total 425 ml Balance -425 ml 480 ml 480 ml 480 ml Intake Oral 480 ml 480 ml 480 ml Output Urine Total 425 ml # Voids 2 5 4 2 # Bowel Movements 0 1 Laboratory Laboratory Tests Test 01/24/17 06:16 White Blood Count 12.1 Red Blood Count 4.58 Hemoglobin 13.6 Hematocrit 39.2 Mean Corpuscular Volume 85.5 Mean Corpuscular Hemoglobin 29.7 Mean Corpuscular Hemoglobin 34.7 Concent Red Cell Distribution Width 13.4 Platelet Count 257 Mean Platelet Volume 8.1 Sodium Level 140 Potassium Level 4.0 Chloride Level 107 Carbon Dioxide Level 25.8 Anion Gap 7 Blood Urea Nitrogen 13 Creatinine 1.06 Estimat Glomerular Filtration 76 Rate Random Glucose 121 Calcium Level 8.4 Date/Time Procedure Status Source Growth 01/23/17 07:23 Aerobic Blood Culture - Preliminary Resulted Blood Peripheral NO GROWTH IN 1 DAY 01/23/17 07:23 Anaerobic Blood Culture - Preliminary Resulted Blood Peripheral NO GROWTH IN 1 DAY Imaging Last Impressions Abdomen/Pelvis CT 01/22/172029 Signed Impressions: Service Date/Time: Sunday, January 22, 2017 20:57 - CONCLUSION: There is evidence of diverticulitis involving the junction of the descending colon and sigmoid colon, in a segment slightly more proximal than the prior abnormal scan on 12/25/15. No drainable fluid collections seen, but there is a minimal amount of fluid tracking along the adjacent lateral conal fascia. Aldo Quezada MD Physical Exam HEENT: EOMI; normocephalic; atraumatic; no jaundice. CHEST: CTA CARDIAC: Rrr ABDOMEN: Soft, nondistended, mild TTP LLQ; no hepatosplenomegaly; bowel sounds are present in all four quadrants. EXTREMITIES: No clubbing, cyanosis, or edema. SKIN: Normal; no rash; no jaundice. 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 (Mayra Ferguson) Assessment and Plan Plan ASSESSMENT: -Diverticulitis, Left sided abdominal pain. iMPROVINg. Patient with history of diverticulitis. Abdomen/Pelvis CT 01/22/17-- There is evidence of diverticulitis involving the junction of the descending colon and sigmoid colon, in a segment slightly more proximal than the prior abnormal scan on 12/25/15. No drainable fluid collections seen, but there is a minimal amount of fluid tracking along the adjacent lateral conal fascia. WBC elevated, 12, decreasing. Afebrile. Blood cultures - no growth in 1 day. PLAN: -NPO -Continue Cipro and Flagyl -IV fluids -Supportive care -FU Colonoscopy as outpatient Patient seen and examined by Dr. Umanzor and myself and this note is written on his behalf. (Mayra Ferguson) Physician Comments Pain free and requesting to advance diet. Stable from GI point of view, plan as above. (Janis Umanzor MD) Mayra Ferguson Jan 24, 2017 13:14 Janis Umanzor MD Jan 24, 2017 14:12
[2017-01-24] MEDS ORDERED: CIPR-9 PO (13:41)
[2017-01-24] MEDS ORDERED: METR-1 PO (13:41)
[2017-01-24] MEDS ORDERED: SENN1TAB PO (13:41)
--- NOTE | 2017-01-24 13:41 | HHI.DCPOC ---
Discharge Care Plan Diagnosis: (1) Acute diverticulitis Goals to Promote Your Health * To prevent worsening of your condition and complications * To maintain your health at the optimal level Directions to Meet Your Goals Take your medications as prescribed Follow your dietary instruction Follow activity as directed Keep your appointments as scheduled Take your immunizations and boosters as scheduled If your symptoms worsen call your PCP, if no PCP go to Urgent Care Center or Emergency Room Smoking is Dangerous to Your Health. Avoid second hand smoke Call the 24-hour hour crisis hotline for domestic abuse at Ayad Mejia MD R2 Jan 24, 2017 13:41
--- NOTE | 2017-01-24 15:47 | HHI.FPPN ---
Subjective Remarks Patient reporting much improved abdominal pain and is requesting a hamburger. Does continue to have LLQ pain but is improved to 5/10, and good response to pain medication. Advanced his diet to full liquids which he is tolerating well. This afternoon he is eager to go home. Has not required pain medication since early this morning. Has no vomiting or nausea. Had one good bowel movement today that was well formed. Discussed if he is able to tolerate a solid diet this evening he may go home with close follow up with his PCP. (Ayad Mejia MD R2) Objective Vitals Vital Signs Date Time Temp Pulse Resp B/P Pulse Ox O2 Delivery O2 Flow Rate FiO2 01/24/17 12:39 96.7 77 20 156/92 97 01/24/17 08:57 97.3 71 21 131/88 96 01/24/17 04:00 97.0 72 18 124/70 98 01/24/17 00:00 97.1 72 18 121/70 95 01/23/17 20:00 99.2 72 17 136/78 98 01/23/17 16:00 96.8 75 16 129/75 96 I/O 01/23/17 01/23/17 01/23/17 01/24/17 01/24/17 01/24/17 07:00 15:00 23:00 07:00 15:00 23:00 Intake Total 480 ml 480 ml 480 ml Output Total 425 ml Balance -425 ml 480 ml 480 ml 480 ml Intake Oral 480 ml 480 ml 480 ml Output Urine Total 425 ml # Voids 2 5 4 2 # Bowel Movements 0 1 (Ayad Mejia MD R2) Result Diagram: 01/24/17 0616 01/24/17 0616 Imaging Last 72 hours Impressions Abdomen/Pelvis CT 01/22/172029 Signed Impressions: Service Date/Time: Sunday, January 22, 2017 20:57 - CONCLUSION: There is evidence of diverticulitis involving the junction of the descending colon and sigmoid colon, in a segment slightly more proximal than the prior abnormal scan on 12/25/15. No drainable fluid collections seen, but there is a minimal amount of fluid tracking along the adjacent lateral conal fascia. Aldo Quezada MD Objective Remarks O. CONSTITUTIONAL/GEN: No distress, sitting up in bed EYES: conjunctiva normal, PERRLA, EOMI. NECK: Normal LUNGS: clear to auscultation CARDIOVASCULAR: RR without murmur or gallop. GI/ABD: soft without masses, without organomegaly. Tender to palpation in LLQ , no rebound or guarding. Normal bowel sounds. No distension. NEURO: No focal deficits. SKIN: color normal, no rashes noted. HEME/LYMPH: no bruising, petechia or significant adenopathy MUSC: back is normal in appearance. Extremities are normal in appearance. PSYCH/MENTAL STATUS: Alert and oriented x 3. (Ayad Mejia MD R2) A/P Assessment and Plan 41 year old male with a past medical history significant for Diverticulitis. He was admitted for IV fluids, antibiotics, and pain medication. Discharge Planning Discharge today if tolerating a solid meal this evening with no nausea/vomiting and reasonably well controlled pain. (Ayad Mejia MD R2) Attending Attestation Patient seen and examined. Case reviewed and discussed with the resident team. Agree with plan of care as discussed with me and documented in the resident note. (Georgia Felix MD) Problem List: (1) Acute diverticulitis Status: Acute Plan: WBC trending down, no fevers. Blood culture negative X1 day. * Consult Gastroenterology * Colonoscopy as an outpatient * Continue ciprofloxacin and metronidazole for one more week. * Ibuprofen PRN for pain. (2) Nutrition, metabolism, and development symptoms Status: Acute Plan: Diet: Full liquid diet, advance to solid this evening as he tolerated diet well Fluid: NS at 100 MLS per hour DVT prophylaxis with Heparin and SCDs Code Status: Full Code Disposition: improvement of clinic condition and GI recs (Ayad Mejia MD R2) Ayad Mejia MD R2 Jan 24, 2017 15:47 Georgia Felix MD Jan 24, 2017 16:17
--- NOTE | 2017-01-27 07:11 | HHI.DS ---
Discharge Summary Admission Date Jan 22, 2017 at 22:38 Discharge Date: Jan 24, 2017 Admitting Diagnosis Acute Diverticulitis (1) Acute diverticulitis Diagnosis: Principal Plan: WBC trending down, no fevers. Blood culture negative X1 day. * Consult Gastroenterology * Colonoscopy as an outpatient * Continue ciprofloxacin and metronidazole for one more week. * Ibuprofen PRN for pain. (2) Nutrition, metabolism, and development symptoms Diagnosis: Secondary Plan: Diet: Full liquid diet, advance to solid this evening as he tolerated diet well Fluid: NS at 100 MLS per hour DVT prophylaxis with Heparin and SCDs Code Status: Full Code Disposition: improvement of clinic condition and GI recs Consultants GI Procedures None Brief History This is a 41 year old male with a past medical history significant for Diverticulitis. He is presenting to the [facility] due to abdominal pain. He has had the abdominal pain for the last 2 days and it has been progressively worsening. At first the pain was tolerable and felt like a bad cramp, as it worsening he switched himself to a clear liquid diet. He started to throw up a day into the pain and said that the emisis was food or bile but did not notice any blood. The pain is in the left side of his abdomen from the bottom of the last rib to the top of his hip. He has the constant cramping pain then occasionally he gets these very unbearable pain, which convinced him to come to the hospital. He say that the sever pain "feels like a midget kicking him in the stomach with a steel toe boot" and that it comes in waves. He says that this pain is more severe then his previous bout of diverticulitis. His last bowel movement was 2 days prior, he denies it being bloody or black. He is unaware of any fevers, though he occasionally feels hot and cold. CBC/BMP: 01/24/17 0616 01/24/17 0616 PE at Discharge O. CONSTITUTIONAL/GEN: No distress, sitting up in bed EYES: conjunctiva normal, PERRLA, EOMI. NECK: Normal LUNGS: clear to auscultation CARDIOVASCULAR: RR without murmur or gallop. GI/ABD: soft without masses, without organomegaly. Tender to palpation in LLQ , no rebound or guarding. Normal bowel sounds. No distension. NEURO: No focal deficits. SKIN: color normal, no rashes noted. HEME/LYMPH: no bruising, petechia or significant adenopathy MUSC: back is normal in appearance. Extremities are normal in appearance. PSYCH/MENTAL STATUS: Alert and oriented x 3. Hospital Course 41 year old male with a history of diverticulitis presented to the ED with abdominal pain for 2 days that was progressively worsening. He also had nausea and vomiting. The pain was located in the LLQ. CT abdomen showed evidence for diverticulitis involving the descending and sigmoid colon. There was no drainable fluid collection. He was diagnosed with simple diverticulitis. GI was consulted. He was started on cipro and flagyl and will continue for one more week after discharge. He was given morphine for pain management. He was given Zofran for nausea/vomiting and Protonix for GERD symptoms. He was given NS at 100 mls/hr. By discharge, his pain was significantly improved and he was tolerating a regular diet. He will follow up with his PCP and also will need to get a colonoscopy as an outpatient. Pt Condition on Discharge: Good Discharge Disposition: Discharge Home Discharge Instructions DIET: Follow Instructions for: As Tolerated, No Restrictions Activities you can perform: Regular-No Restrictions Follow up Referrals: PCP Follow-up - 1 Week New Medications: Ciprofloxacin (Cipro) 500 Mg Tab 500 MG PO Q12HR #12 TAB Metronidazole (Flagyl) 500 Mg Tab 500 MG PO Q8HR #18 TAB Sennosides-Docusate Sodium (Senna Plus 8.6-50 mg) 1 Tab Tab 1 TAB PO BID #14 TAB Continued Medications: Cyclobenzaprine Hcl (Flexeril) 10 Mg Tab 10 MG PO TID PRN MUSCLE SPASM #30 TAB Ibuprofen (Motrin 800 Mg Tab) 800 Mg Tab 800 MG PO Q8H PRN PAIN SCALE 1 TO 10 Days 10 TAB Ayad Mejia MD R2 Jan 27, 2017 07:11
== END 2017-01-24 17:58 | disposition home or self-care (01) | DRG 392 ==
LOC: NEPE 19:25 → NEDA 22:38 → HOCB 01-23 00:05
PROVIDERS: ADMIT Family Medicine; ATTEND Family Medicine
DX: K57.32 Diverticulitis of large intestine without perforation or abscess without bleeding (principal); E86.0 Dehydration; F41.9 Anxiety disorder, unspecified; F17.210 Nicotine dependence, cigarettes, uncomplicated; G43.909 Migraine, unspecified, not intractable, without status migrainosus; K59.00 Constipation, unspecified; F12.90 Cannabis use, unspecified, uncomplicated
CPT/HCPCS: 74177; 80048; 80053; 81001; 83690; 85025; 85027; 87040; 96374; 96375; C9113; J0744; J1644; J2270; J2405; J7030; Q9967